=== PATIENT | female | born 1990 | race Caucasian/White ===

== ENCOUNTER 2019-08-15 08:14 | Emergency (ER) | payer OTHER ==
[~2019-08-15] VITALS: Ht 157.5 cm; Wt 54.4 kg
[2019-08-15 08:24] VITALS: Ht 157.5 cm; Wt 54.4 kg
[2019-08-15 09:05] VITALS: BP 124/87
== END 2019-08-15 09:05 | disposition home or self-care (01) ==
LOC: ED 08:14
DX: L84 Corns and callosities (principal); F15.90 Other stimulant use, unspecified, uncomplicated; M79.10 Myalgia, unspecified site

== ENCOUNTER 2019-08-15 14:14 | Emergency (ER) | payer OTHER ==
[~2019-08-15] VITALS: Ht 160 cm; Wt 58.1 kg
[2019-08-15 14:25] VITALS: Ht 160 cm; Wt 58.1 kg
[2019-08-15 14:48] VITALS: BP 148/106
== END 2019-08-15 14:48 | disposition home or self-care (01) ==
LOC: ED 14:14
DX: Z02.89 Encounter for other administrative examinations (principal)